=== PATIENT | female | born 1990 | race Caucasian/White ===

== ENCOUNTER 2018-01-08 08:30 | Outpatient (RCR) | payer OTHER ==
[~2018-01-08 08:30] MED LIST: BIRTH CONTROL PO
== END 2018-01-10 | disposition home or self-care (01) ==
LOC: CARD 08:30
PROVIDERS: ATTEND Internal Medicine Interventional Cardiology
DX: I49.3 Ventricular premature depolarization (principal); R55 Syncope and collapse
CPT/HCPCS: 93270

== ENCOUNTER → 2018-12-16 | Outpatient (CLI) | payer OTHER ==
--- NOTE | 2018-12-16 17:22 | Diagnostic Imaging Report ---
PROCEDURE: MR imaging of the brain without contrast. TECHNIQUE: Multiplanar, multisequence MR imaging of the brain was performed without contrast. INDICATION: Dizziness. Vertigo. Headaches. COMPARISON: None. FINDINGS: No abnormal intracranial signal. No restricted water diffusion or hemosiderin deposition. Normal morphology including the major midline structures, sella, posterior fossa, and cerebellopontine angle. The orbits are negative. Normal intracranial flow voids. No hydrocephalus or extra-axial fluid collections. Mucous retention cyst in the right maxillary sinus measures up to 2.1 cm. The mastoids are clear. Normal bone marrow signal. IMPRESSION: 1. Negative MRI of the brain without contrast. 2. Mucous retention cyst in the right maxillary sinus measures up to 2.1 cm. Dictated by: Dictated on workstation # [id number]
== END ==
LOC: RAD 16:29
PROVIDERS: ATTEND Psychiatry & Neurology Neurology
DX: J34.1 Cyst and mucocele of nose and nasal sinus (principal); R42 Dizziness and giddiness
CPT/HCPCS: 70551

== ENCOUNTER → 2019-01-12 | Outpatient (CLI) | payer OTHER ==
[~2019-01-12] VITALS: Ht 175.3 cm; Wt 71.8 kg
[2019-01-12] VITALS (12 sets, daily range): BP systolic 66–125; BP diastolic 46–91
[~2019-01-12] MED LIST changes: +ATROPINE INJECTION 1 MG/10 ML SYR (ABBOTT) ONE; +NS IV 1000 ML 1,000 ML IV SCH; +NS IV 1000 ML 1,000 ML ONE
--- NOTE | 2019-01-12 14:25 | Cardiology Tilt Table Test ---
Cardiology-Tilt Table Test Tilt Table Test Date 01/12/[address] Watkins Baseline Vitals Vital Signs Date Time Temp Pulse Resp B/P (MAP) Pulse Ox O2 Delivery O2 Flow Rate FiO2 01/12/19 13:50 36.8 80 118/67 (84) 100 BP 118/67 HR 80 SP02 100% T 36.8 Vital Signs VS - Last 72 Hours, by Label 01/12/19 13:50 Temp 36.8 Pulse 80 B/P (MAP) 118/67 (84) Pulse Ox 100 Patient was tilted to 75 degrees for 4 minutes resulted in severe bradycardia and hypotension HR 46, BP 66/46 test was terminated During test, patient was: had a syncopal event at minute (4, stage 1 with BP 66/46 HR 46) In Conclusion;: Vasovagal Syncope with (Cardioinhibitory Syncope) Patient will be started on Florinef 0.1mg daily, instructed to increase fluid intake. This is Amita Rm PA-C, as a scribe for Dr. Sosa. AMITA HUSSEIN Jan 12, 2019 14:25 CHANTELL SOSA MD Jan 12, 2019 14:35
== END ==
LOC: CARD 13:24
PROVIDERS: ATTEND Family Medicine
DX: I95.9 Hypotension, unspecified (principal); R00.0 Tachycardia, unspecified
CPT/HCPCS: 93660

== ENCOUNTER → 2019-02-09 | Outpatient (CLI) | payer OTHER ==
[~2019-02-09] MED LIST changes: -ATROPINE INJECTION 1 MG/10 ML SYR (ABBOTT) ONE; -NS IV 1000 ML 1,000 ML IV SCH; -NS IV 1000 ML 1,000 ML ONE
--- NOTE | 2019-02-09 11:25 | Diagnostic Imaging Report ---
PROCEDURE: US left lower extremity venous. TECHNIQUE: Multiple real-time grayscale images were obtained over the left lower extremity in various projections. Additional duplex Doppler and color Doppler images were also obtained. INDICATION: Left leg numbness and pain. FINDINGS: There is no evidence of left lower extremity DVT. Left lower extremity deep venous system shows normal compressibility with normal response to augmentation and Valsalva. No fluid collection or mass is seen. IMPRESSION: No evidence of left lower extremity DVT. Dictated by: Dictated on workstation # [id number]
== END ==
LOC: RAD 10:30
PROVIDERS: ATTEND Nurse Practitioner Family
DX: M79.605 Pain in left leg (principal); R20.0 Anesthesia of skin

== ENCOUNTER → 2019-06-27 | Outpatient (CLI) | payer BC, OTHER ==
--- NOTE | 2019-06-27 12:14 | Diagnostic Imaging Report ---
PROCEDURE: US Abdomen, limited. TECHNIQUE: Multiple realtime grayscale images were obtained over the abdomen in various projections. INDICATION: Left upper quadrant pain. FINDINGS: Spleen is normal in size and echotexture, it is 8.8 cm long axis, no subcapsular or perisplenic fluid collection. The left kidney normal in size cortical thickness and echotexture measuring 11.5 cm. IMPRESSION: Normal left upper quadrant ultrasound. Dictated by: Dictated on workstation # [id number]
== END ==
LOC: RAD 11:26
PROVIDERS: ATTEND Nurse Practitioner Family
DX: R10.12 Left upper quadrant pain (principal)
CPT/HCPCS: 76705

== ENCOUNTER → 2021-09-23 | Outpatient (CLI) | payer BC ==
--- NOTE | 2021-09-23 18:00 | Diagnostic Imaging Report ---
INDICATION: Left hand pain and swelling. AP, oblique, and lateral views of the left hand are obtained. No fracture or acute bony abnormality seen. Joint spaces are unremarkable. IMPRESSION: Negative left hand. Dictated by: Dictated on workstation # [id number]
== END ==
LOC: RAD 16:49
PROVIDERS: ATTEND Family Medicine
DX: M25.442 Effusion, left hand (principal); M79.642 Pain in left hand
CPT/HCPCS: 73130